=== PATIENT | female | born 2000 | race Caucasian/White ===

== ENCOUNTER 2022-01-26 14:57 | Emergency (ER) | payer OTHER, SELFPAY ==
[2022-01-26 15:08] VITALS: BP 120/74; PULSE 65; RESP 16; TEMP 36.6; O2SAT 100
--- NOTE | 2022-01-26 15:30 | ED.EAR ---
HPI - Ear Problem General Chief complaint: Ear Stated complaint: right ear discomfort Time Seen by Provider: 01/26/22 15:30 Source: patient Mode of arrival: ambulatory Limitations: no limitations History of Present Illness HPI Narrative: 21-year-old female presented for complaint of drowning sensation in the right ear for over 1 month. Endorses sudden onset, denies trauma. Symptoms are intermittent. She denies associated pain, drainage, dizziness, sinus congestion, nausea, fevers or chills. She endorses a history of recurrent ear infections as a child and had 4 sets of tubes placed. She does not follow with an ENT any longer. She used Afrin spray for 3 days and Flonase spray without change in symptoms. MD Complaint: ear pain Related Data Home Medications Medication Instructions Recorded Confirmed metoprolol tartrate 25 mg tablet mg 01/26/22 Allergies Allergy/AdvReac Type Severity Reaction Status Date / Time azithromycin [From Zithromax] Allergy Hives Verified 01/26/22 15:05 cefdinir Allergy Hives Verified 01/26/22 15:05 erythromycin base Allergy Hives Verified 01/26/22 15:05 Review of Systems Review of Systems: CONSTITUTIONAL: Denies malaise, chills, or fever. EYES: Denies visual changes, redness, or discharge. ENT: Denies rhinorrhea, congestion, sinus pain, and sore throat. Reports ear drumming CARDIOVASCULAR: Denies chest pain, palpitations, or edema. RESPIRATORY: Denies cough or dyspnea. GASTROINTESTINAL: Denies abdominal pain, nausea, vomiting, diarrhea SKIN: Denies rash or itching. MUSCULOSKELETAL: Denies myalgia. NEUROLOGIC: Denies headache. All systems reviewed & are unremarkable except as noted in HPI and below [facility] Comments At time of signature, agree with nursing past medical, surgical, social and family history. There is no relevant family history pertinent to the presenting complaint Exam Narrative: GENERAL: Well-appearing HEAD: Normocephalic EYES: PERRLA, conjunctivae clear ENT: Nares clear. Mucous membranes moist. TMs pearly turner with normal light reflex bilaterally, scarring to right TM; no tragal tenderness. Oropharynx not erythematous without lesions. Tonsils not enlarged and without exudate, no drooling, no hoarseness, no trismus, uvula midline. NECK: Supple. No lymphadenopathy CHEST: Clear to auscultation HEART: Regular rate and rhythm. No murmur. SKIN: Warm, dry, no rash. NEURO: Alert and oriented x3. PSYCH: Normal mood and affect Course Course Emergency Course: Patient is aware of diagnosis, understands and agrees to treatment plan. Anticipatory guidance given. Patient agrees to follow-up as directed and is aware of reasons to seek care at the emergency department. Portions of this record may have been created with voice recognition software Level of Care: Express Care Visit Vital Signs Vital signs: Vital Signs Temperature 97.8 F 01/26/22 15:08 Pulse Rate 65 01/26/22 15:08 Respiratory Rate 16 01/26/22 15:08 Blood Pressure 120/74 01/26/22 15:08 Pulse Oximetry 100 01/26/22 15:08 Temperature 97.8 F 01/26/22 15:08 Pulse Rate 65 01/26/22 15:08 Respiratory Rate 16 01/26/22 15:08 Blood Pressure 120/74 01/26/22 15:08 Pulse Oximetry 100 01/26/22 15:08 Reviewed Medical Decision Making MDM Narrative Medical decision making narrative: PE unremarkable, Advised supportive measures and f/u with ENT, reviewed signs/symptoms to go to the ER. Patient is appropriate for outpatient treatment and follow-up. Differential Diagnosis Differential Diagnosis: Coronavirus, strep pharyngitis, allergic rhinitis, upper respiratory tract infection, sinusitis, rhinosinusitis, nasopharyngitis, viral pharyngitis, otitis media, otitis externa, eustachian tube dysfunction, foreign body, cerumen impaction. Vital Signs Vital Signs: Vital Signs Temperature 97.8 F 01/26/22 15:08 Pulse Rate 65 01/26/22 15:08 Respiratory Rate 16 01/26/22 15:08 Blood Pressur
== END 2022-01-26 15:50 | disposition home or self-care (01) ==
PROVIDERS: Emergency Provider Nurse Practitioner Family
DX: H93.A1 Pulsatile tinnitus, right ear (principal)
CPT/HCPCS: 99211; G0463

== ENCOUNTER 2024-03-16 15:28 | Emergency (ER) | payer BC, SELFPAY ==
[2024-03-16 15:37] VITALS: BP 105/68; PULSE 91; RESP 20; TEMP 36.6; O2SAT 100
--- NOTE | 2024-03-16 15:52 | ED_ITS ---
HPI - URI/Sore Throat General Chief Complaint: Upper Respiratory Infection Stated Complaint: Cough Time Seen by Provider: 03/16/24 15:52 Source: patient, RN notes reviewed and old records reviewed Mode of arrival: ambulatory Limitations: no limitations History of Present Illness HPI Narrative: 23-year-old female presents to [facility] with complaints of having low grade fever,cough, and chills starting on last with sinus congestion and sore throat on Tuesday and Tuesday, Patient reports that initial symptoms have resolved with continued cough which is dry lingering. Patient reports that she has been taking Tylenol and Ibuprofen and Flonase nasal spray for her symptoms. reports no fevers. MD elicited complaint: cough Pertinent past history: other ( cough) Onset (ago): day(s) (8) Consistency: intermittent Severity: mild Description of mucous: clear Able to tolerate fluids by mouth: Yes Treatments prior to arrival: acetaminophen, ibuprofen and other (Flonase nasal spray) Related Data Home Medications Medication Instructions Recorded Confirmed metoprolol tartrate 25 mg tablet 25 mg PO DAILY 01/26/22 03/16/24 Allergies Allergy/AdvReac Type Severity Reaction Status Date / Time azithromycin [From Zithromax] Allergy Hives Verified 03/16/24 15:35 cefdinir Allergy Hives Verified 03/16/24 15:35 erythromycin base Allergy Hives Verified 03/16/24 15:35 Review of Systems Review of Systems: CONSTITUTIONAL: Reports initial malaise, chills, sweats, or fever. EYES: Denies visual changes, redness, or discharge. ENT: Reports initial rhinorrhea, congestion, sinus pain, no otalgia and initial sore throat which has resolved. CARDIOVASCULAR: Denies chest pain, palpitations, or edema. RESPIRATORY: Reports lingering cough.? Denies dyspnea. GASTROINTESTINAL: Denies abdominal pain, nausea, vomiting, diarrhea SKIN: Denies rash or itching. MUSCULOSKELETAL: Denies myalgia. NEUROLOGIC: Denies headache. All systems reviewed & are unremarkable except as noted in HPI and below PMFSH Past Medical History Medical History Danile-Danlos syndrome POTS (postural orthostatic tachycardia syndrome) Social History Social History Smoking status: Never smoker Alcohol intake: current Alcohol use details: social Substance use type: does not use Occupation/Education: student Gender identity (if verbalized by the patient): Female Comments At time of signature, agree with nursing past medical, surgical, social and family history. There is no relevant family history pertinent to the presenting complaint Exam Narrative: GENERAL: Well-appearing, well-nourished, and in no acute distress. HEAD: Normocephalic EYES: PERRLA, conjunctivae clear ENT: Nares clear, turbinates edematous and erythematous, clear discharge. Mucous membranes moist. TM pearly turner with dull light reflex bilaterally; no tragal tenderness. Oropharynx erythematous without lesions. Tonsils not enlarged and without exudate, no drooling, no hoarseness, no trismus, uvula midline. NECK: Supple. No lymphadenopathy CHEST: Clear to auscultation, breath sounds equal. No wheezing, rhonchi, rales, or stridor. No respiratory distress, speaks in full sentences.dry cough noted SAO2 100% on room air no tachypnea, respirations even and nonlabored HEART: Regular rate and rhythm. No murmur heard. SKIN: Warm, dry, no rash. NEURO: Alert and oriented x3. PSYCH: Normal mood and affect Course Course Emergency Course: Patient is aware of diagnosis, understands and agrees to treatment plan.? Anticipatory guidance given.? Patient agrees to follow-up as directed and is aware of reasons to seek care at the emergency department. Portions of this record may have been created with voice recognition software Level of Care: Express Care Visit Vital Signs Vital signs: Vital Signs Temperature 36.6 C 03/16/24 15:37 Pulse Rate 91 03/16/24 15:37 Respiratory Rate 20 03/16/24 15:37 Blood Pressure 105/68 03/16/24 15:37 Pulse Oximetry 100 03/16/24 15:37 Temperature 36.6 C 03/16/24 15:37 Pulse Rate 91 03/16/24 15:37 Respiratory Rate 20 03/16/24 15:37 Blood Pressure 105/68 03/16/24 15:37 Pulse Oximetry 100 03/16/24 15:37 Reviewed MDM - URI/Sore Throat MDM Narrative Medical decision making narrative: Differential diagnosis considered: Willard virus, strep pharyngitis, allergic rhinitis, upper respiratory tract infection, sinusitis, rhinosinusitis, nasopharyngitis. viral pharyngitis, otitis media, otitis externa, pneumonia, bronchitis, viral cough syndrome, viral syndrome, and influenza.? Exam findings show no acute concerns or changes; patient is non-toxic appearing and is in no distress.? Patient is appropriate for outpatient treatment and follow-up. Differential Diagnosis Differential diagnosis: Likely upper respiratory infection, sinusitis, viral infection, bronchitis and other (acute cough) Medical Records Attestation: I reviewed the patient's medical records. Lab Data Attestation: I reviewed the patient's lab results. Critical Care Time Critical Care Time Critical Care Time: No Discharge Plan Discharge Clinical Impression: Acute cough Upper respiratory infection Qualifiers: URI type: unspecified URI Qualified Code(s): J06.9 - Acute upper respiratory infection, unspecified Patient Disposition: Home, Self-Care Condition: Stable Instructions: Upper Respiratory Infection (ED), Acute Cough (ED) Additional Instructions: Increase fluids especially juices and water [id number] cough and cold medicine of your choice for your symptoms Zyrtec Claritin or Dodie daily continue your nasal spray Cough tablets as directed for cough--do not bite, chew or suck on--swallow whole Tylenol or ibuprofen any fever pain Steroids as directed--take with food heat to the face 20-30 minutes 4-6 times a day for pain Salt water gargles, throat lozenges or throat sprays as desired If your symptoms persist, change or worsen significantly before you can contact your personal physician then please, without delay, go to the emergency department for further evaluation. Follow-up with PCP in 7-10 days or sooner if needed monitor for any fevers Prescriptions: New benzonatate 200 mg capsule 200 mg PO TID PRN (Reason: cough) Qty: 20 0RF methylprednisolone [Medrol (Roni)] 4 mg tablets,dose pack See Rx Instructions .ROUTE .COMPLEX Qty: 21 0RF Rx Instructions: orally per package directions No Action metoprolol tartrate 25 mg tablet 25 mg PO DAILY Follow-up/Referrals: PHYSICIAN,INFORMATION TECHNOLOGY AUDITOR [Primary Care Provider] - Time of Disposition: 16:12 Quality Tessy Coma Scale Eyes: Open Verbal: Oriented and Alert Motor: Follows Commands [place] Coma Total Score: 15
== END 2024-03-16 16:16 | disposition home or self-care (01) ==
PROVIDERS: Emergency Provider Registered Nurse
DX: R05.1 Acute cough (principal); J06.9 Acute upper respiratory infection, unspecified; Q79.60 Ehlers-Danlos syndrome, unspecified; G90.A Postural orthostatic tachycardia syndrome [POTS]
CPT/HCPCS: 99213; G0463